=== PATIENT | female | born 1960 | race Caucasian/White ===

== ENCOUNTER → 2018-08-07 | Outpatient (CLI) | payer OTHER ==
--- NOTE | 2018-08-08 10:45 | SLEEP ---
DATE OF STUDY: 08/07/2018 ATTENDING PHYSICIAN: Dr. Justine Yo. INDICATIONS: The patient is 57 years old who weighs 165 pounds with a BMI of 28. The patient's Salinas score was 11. The patient underwent diagnostic sleep study performed at [facility]. INTERPRETATION: During the night study, the patient spent 433 minutes in bed and slept for 420 minutes with an excellent sleep efficiency of 97%. Sleep latency was 6 minutes with a REM latency of 47 minutes. Overall, sleep architecture showed normal stage 1 and stage 2 sleep, increased N3 sleep and normal REM sleep. During the night study, the patient had 6 obstructive apneas, 2 mixed apneas, 1 central apnea and 42 hypopneas. The patient's apnea-hypopnea index was 7 per hour with a supine index of 9 per hour and the REM index of 29 per hour. EKG monitoring revealed an average heart rate of 86 beats per minute. No sustained arrhythmias were observed. Nocturnal oximetry study revealed a mean oxygen saturation of 94%, the lowest of 82%. Only 3% of time oxygen saturation remained between 80% and 89%. PLMS were not observed. The patient did not meet the split night criteria for CPAP initiation. IMPRESSION: 1. Mild sleep apnea-hypopnea syndrome with worsening during REM sleep. Total apnea-hypopnea index 7 per hour with a REM apnea-hypopnea index of 29 per hour. 2. No clinically significant nocturnal hypoxia. 3. No clinically significant periodic limb movements during sleep. RECOMMENDATIONS: 1. The patient has mild sleep apnea. The patient is clinically symptomatic with an Salinas score of 11. I would recommend treating the patient's sleep apnea with either oral appliance as recommended by the dentist versus a trial of CPAP. 2. Once the patient is optimally treated, then follow up in 4-6 weeks to assess compliance with treatment and to document clinical improvement. 3. Avoid [employer] depressants. 4. Weight loss to ideal weight is recommended. MONTY BATISTA MD DR: ENRIQUE/emir JOB#: [id number] / [id number] JUSTINE Dumas MD
== END | disposition home or self-care (01) ==
LOC: SLPLAB 18:53
PROVIDERS: ATTEND Internal Medicine Critical Care Medicine
DX: G47.33 Obstructive sleep apnea (adult) (pediatric) (principal)
CPT/HCPCS: 95810

== ENCOUNTER → 2019-10-23 | Outpatient (CLI) | payer OTHER ==
--- NOTE | 2019-10-23 15:55 | KCIC ---
EXAM: RIGHT SHOULDER 3 VIEWS. HISTORY: Rotator cuff arthropathy. Pain and limited range of motion. COMPARISON: None. FINDINGS: No fractures are identified. Glenohumeral joint spaces and alignment are maintained. The subacromial space is not clearly narrowed in these projections. There is minimal acromioclavicular joint space narrowing for patient age. A bone island is suspected within the right glenoid. IMPRESSION: 1. No clear degenerative change for patient age. MRI could further assess the rotator cuff if there is persistent concern. Electronically signed by: Sawyer Alejandro MD (10/23/2019 3:52 PM) [id number]
--- NOTE | 2019-10-23 16:05 | KCIC ---
Bilateral digital screening mammograms: Reason for examination: Routine screening. New baseline. Interpretation was made with the benefit of CAD. The skin and nipples show no abnormalities. No abnormal axillary lymph nodes are seen. The breast parenchyma shows scattered fibroglandular density. (Breast density: Category B.) There are small nodules at the 4:00 position of the right breast approximately 6 cm from the nipple measuring 6.5 mm in size and in the central left breast approximately 6 cm deep to the nipple measuring 5.8 mm in size. Further evaluation with ultrasound is recommended. There are no other dominant masses, suspicious calcifications or architectural distortions. Impression: Small nodular densities at the 4:00 position of the right breast and at the central left breast 6 cm deep to the nipple. Recommend further evaluation with ultrasound. BI-RADS Category 0: Incomplete. Needs additional imaging evaluation. "Our facility is accredited by the [employer] Mammography Program." This patient's information has been entered into a reminder system for the patient to be notified with the results of her examination and a target date for the next mammogram. Electronically signed by: Mary Ann May MD (10/23/2019 4:02 PM) [id number]
== END | disposition home or self-care (01) ==
LOC: KCIC 14:19
PROVIDERS: ATTEND Family Medicine
DX: Z12.31 Encounter for screening mammogram for malignant neoplasm of breast (principal); M12.811 Other specific arthropathies, not elsewhere classified, right shoulder; N64.89 Other specified disorders of breast
CPT/HCPCS: 73030; 77067

== ENCOUNTER → 2019-10-31 | Outpatient (CLI) | payer OTHER ==
--- NOTE | 2019-10-31 11:38 | RAD ---
INDICATION: 59 year-old female presents for further evaluation of an abnormality on screening mammogram. TECHNIQUE: Targeted high resolution sonography of the regions of clinical concern was performed. COMPARISON: 10/23/2019 FINDINGS: Sonographic evaluation of the area of focal demonstrates unremarkable fibroglandular tissue without evidence for suspicious cystic or solid mass. Incidentally noted at the 4:00 position, 1 cm from the nipple within the right breast is a 0.4 cm irregular hypoechoic mass, possibly complicated cyst. IMPRESSION: Probably benign finding. RECOMMENDATION: Recommend 6 month ultrasound and mammographic follow-up to include spot compression views BI-RADS 3: Probably Benign Electronically signed by: Guillermo Vogel MD (10/31/2019 11:34 AM) [id number]
== END | disposition home or self-care (01) ==
LOC: US 10:19
PROVIDERS: ATTEND Family Medicine
DX: N63.14 Unspecified lump in the right breast, lower inner quadrant (principal); R92.8 Other abnormal and inconclusive findings on diagnostic imaging of breast
CPT/HCPCS: 76641-50

== ENCOUNTER → 2019-11-03 | Outpatient (CLI) | payer OTHER ==
--- NOTE | 2019-11-03 15:33 | KCIC ---
Examination: MRI of the right shoulder without contrast HISTORY: History of right shoulder pain COMPARISON: None available Technique: Multiplanar, multisequence MR imaging of the right shoulder performed without contrast. FINDINGS: The long head of the biceps tendon within the bicipital groove. The attachment of the long head the biceps tendon to the superior labral anchor grossly appears intact. The attachment of the subscapularis tendon grossly appears intact. There is a focus of full-thickness identified in the supraspinatus tendon measuring 9 mm with extension of fluid into the subacromial /subdeltoid bursa. The infraspinatus, teres minor tendon grossly appears intact. Moderate increased signal identified in the subscapularis, supraspinatus appendicitis tendons likely tendinosis. There is mild increased signal identified in the superior labrum extending anteriorly and posteriorly The muscle bulk grossly appears unremarkable. The acromion is type II. Mild degenerative changes acromioclavicular joints. There is obscuration of fat in the rotator interval. IMPRESSION: 1. Full-thickness tear of the supraspinatus tendon with extension of fluid into the subacromial subdeltoid bursa. 2. Moderate tendinosis of the rotator cuff. 3. Increased signal identified in the superior labrum extending posteriorly could be degenerative labral tear. 4. Moderate degenerative changes glenohumeral joint, acromioclavicular joint. 5. There is obscuration of fat in the rotator interval. Correlate for adhesive capsulitis. Electronically signed by: Anselmo Smalls MD (11/03/2019 3:31 PM) [id number]
== END ==
LOC: KCIC MRI 13:42
PROVIDERS: ATTEND Family Medicine
DX: M75.121 Complete rotator cuff tear or rupture of right shoulder, not specified as traumatic (principal); M75.01 Adhesive capsulitis of right shoulder; M19.011 Primary osteoarthritis, right shoulder
CPT/HCPCS: 73221

== ENCOUNTER → 2020-06-17 | Outpatient (CLI) | payer OTHER ==
--- NOTE | 2020-06-17 15:27 | RAD ---
Examination: 1. Right digital diagnostic mammogram. 2. Limited right breast ultrasound. INDICATION: 59-year-old woman presents for short-term follow-up of a 4 mm probably benign cyst in the right breast at the 4:00 position 1 cm from the nipple COMPARISON: Limited right breast ultrasound of 10/31/2019 and bilateral screening mammogram of 10/23/2019. TECHNIQUE: CC, MLO and ML views of the right breast were obtained. Spot compression views of the right breast in the CC and MLO views were also obtained. Targeted ultrasound of the medial right breast was also performed at this visit. FINDINGS: Scattered fibroglandular densities. Additional views of the right breast show a persistent focal asymmetry in the medial middle third right breast was pursued further with targeted ultrasound. Ultrasound right breast identified a 4 mm hypoechoic mass at the 3:00 position 4 cm from the nipple with questionable spiculated margins (image 5 of series 1) that is mildly suspicious. In addition, a 3 mm irregular mass is identified at the right 4:00 position 5 cm from the nipple (image 16 series 1). It may correlate with the asymmetry seen on same day mammogram. It is sonographically suspicious. Ultrasound of the right axilla reveals no adenopathy. IMPRESSION: There are 2 small masses in the right breast at the 3:00 position 4 cm from the nipple measuring 4 mm and at the 4:00 position 5 cm from the nipple measuring 3 mm that are mildly suspicious and recommended for attempt at cyst aspiration or core needle biopsy. BI-RADS Category 4 Findings suspicious for malignancy Recommend attempt at cyst aspiration and if unsuccessful, core needle biopsy. Discussed with patient. Report telephoned to Dr. Aguilera's office at 2:42 PM where Alejandra took the report on her behalf on 06/17/2020.
== END ==
LOC: MAMMO 13:14
PROVIDERS: ATTEND Family Medicine
DX: N63.14 Unspecified lump in the right breast, lower inner quadrant (principal)
CPT/HCPCS: 76641; 77065